=== PATIENT | male | born 1970 | race Caucasian/White ===

== ENCOUNTER 2019-08-17 21:59 | Emergency (ER) | payer OTHER ==
[~2019-08-17 21:59] MED LIST: THIAMINE 100 MG TAB PO SCH
[2019-08-17 22:06] VITALS: RESP 16
--- NOTE | 2019-08-17 22:25 | ED ---
Alcohol HPI - General Chief Complaint: Alcohol Stated Complaint: Altered Mental Status Time Seen by Provider: 08/17/19 22:09 Source: patient, EMS, RN notes reviewed, old records reviewed Mode of arrival: EMS Limitations: no limitations - History of Present Illness Initial Comments: This is a 49-year-old male presents today for evaluation. Patient has history of alcoholism hospital admissions inpatient stay with T evaluation of her cardiac disease the patient at [facility] now for alcohol withdrawal rehabilitation. Today patient was found of nausea vomiting and being severely weak and fatigued last drink was yesterday MD Complaint: alcohol intoxication, alcohol withdrawal, desires rehab, medical clearance for detox facility Last Drink: unknown (1 day ago) Previous Visits for Alcohol Intoxication?: Yes Recent Trauma: No Associated Symptoms: nausea, vomiting Treatments Prior to Arrival: none Chronic Alcohol Use: Yes - Related Data Allergies Allergy/AdvReac Type Severity Reaction Status Date / Time No Known Allergies Allergy Verified 08/17/19 22:06 Review of Systems ROS Statement: Those systems with pertinent positive or pertinent negative responses have been documented in the HPI. ROS Other: All systems not noted in ROS Statement are negative. Past Medical History Past Medical History: Hypertension History of Any Multi-Drug Resistant Organisms: None Reported Past Surgical History: Back Surgery, Coronary Bypass/CABG Past Psychological History: Bipolar, Depression Smoking Status: Never smoker Past Alcohol Use History: None Reported, Abuse, Daily Past Drug Use History: None Reported General Exam Limitations: no limitations General appearance: alert, in no apparent distress, anxious Head exam: Present: atraumatic, normocephalic, normal inspection Eye exam: Present: normal appearance, PERRL, EOMI. Absent: scleral icterus, conjunctival injection, periorbital swelling ENT exam: Present: normal exam, mucous membranes moist Neck exam: Present: normal inspection. Absent: tenderness, meningismus, lymphadenopathy Respiratory exam: Present: normal lung sounds bilaterally. Absent: respiratory distress, wheezes, rales, rhonchi, stridor Cardiovascular Exam: Present: regular rate, normal rhythm, normal heart sounds. Absent: systolic murmur, diastolic murmur, rubs, gallop, clicks GI/Abdominal exam: Present: soft, normal bowel sounds. Absent: distended, tenderness, guarding, rebound, rigid Extremities exam: Present: normal inspection, full ROM, normal capillary refill. Absent: tenderness, pedal edema, joint swelling, calf tenderness Back exam: Present: normal inspection Neurological exam: Present: alert, oriented X3, CN II-XII intact Psychiatric exam: Present: normal affect, normal mood Skin exam: Present: warm, dry, intact, normal color. Absent: rash Course Vital Signs 08/17/19 08/17/19 08/18/19 22:02 22:52 00:00 Temperature 99.1 F 98.0 F Pulse Rate 77 82 Respiratory 16 16 16 Rate Blood Pressure 161/115 161/115 139/96 O2 Sat by Pulse 100 100 Oximetry - Reevaluation(s) Reevaluation #1: 08/17/19 22:32 Medical record and recent hospitalization is reviewed Patient treated here in the emergency room feeling much improved. Given options for discharge return [facility] Medical Decision Making - Medical Decision Making 49 male DF for evaluation of alcohol abuse alcohol intoxication patient is in no current distress symptoms are relatively improving he can be discharged home - Lab Data Result diagrams: 08/17/19 22:45 08/17/19 22:45 Lab Results 08/17/19 08/17/19 08/17/19 Range/Units 22:45 22:45 22:50 WBC 2.7 L (3.8-10.6) k/uL RBC 3.42 L (4.30-5.90) m/uL Hgb 11.9 L (13.0-17.5) gm/dL Hct 37.2 L (39.0-53.0) % MCV 108.7 H (80.0-100.0) fL MCH 35.0 (25.0-35.0) pg MCHC 32.2 (31.0-37.0) g/dL RDW 17.3 H (11.5-15.5) % Plt Count 118 L (150-450) k/uL Neutrophils % (Manual) 71 % Lymphocytes % (Manual) 18 % Monocytes % (Manual) 9 % Eosinophils % (Manual) 2 % Neutrophils # (Manual) 1.92 (1.3-7.7) k/uL Lymphocytes # (Manual) 0.49 L (1.0-4.8) k/uL Monocytes # (Manual) 0.24 (0-1.0) k/uL Eosinophils # (Manual) 0.05 (0-0.7) k/uL Nucleated RBCs 0 (0-0) /100 WBC Manual Slide Review Performed Polychromasia Present Poikilocytosis Slight Anisocytosis Slight Macrocytosis Marked A Sodium 133 L (137-145) mmol/L Potassium 3.6 (3.5-5.1) mmol/L Chloride 103 (98-107) mmol/L Carbon Dioxide 22 (22-30) mmol/L Anion Gap 8 mmol/L BUN 7 L (9-20) mg/dL Creatinine 0.85 (0.66-1.25) mg/dL Est GFR (CKD-EPI)AfAm >90 (>60 ml/min/1.73 sqM) Est GFR (CKD-EPI)NonAf >90 (>60 ml/min/1.73 sqM) Glucose 116 H (74-99) mg/dL Calcium 8.5 (8.4-10.2) mg/dL Phosphorus 2.7 (2.5-4.5) mg/dL Magnesium 1.8 (1.6-2.3) mg/dL Total Bilirubin 2.4 H (0.2-1.3) mg/dL AST 142 H (17-59) U/L ALT 47 (4-49) U/L Alkaline Phosphatase 171 H (38-126) U/L Total Protein 6.2 L (6.3-8.2) g/dL Albumin 3.5 (3.5-5.0) g/dL Lipase 199 (23-300) U/L Urine Opiates Screen Not Detected (NotDetected) Ur Oxycodone Screen Not Detected (NotDetected) Urine Methadone Screen Not Detected (NotDetected) Ur Propoxyphene Screen Not Detected (NotDetected) Ur Barbiturates Screen Not Detected (NotDetected) U Tricyclic Antidepress Not Detected (NotDetected) Ur Phencyclidine Scrn Not Detected (NotDetected) Ur Amphetamines Screen Not Detected (NotDetected) U Methamphetamines Scrn Not Detected (NotDetected) U Benzodiazepines Scrn Detected H (NotDetected) Urine Cocaine Screen Not Detected (NotDetected) U Marijuana (THC) Screen Detected H (NotDetected) Serum Alcohol <10 mg/dL - EKG Data -: EKG Interpreted by Me (EKG is sinus rhythm of 69, MN 140, QRS 90, QTc 440) Disposition Clinical Impression: Alcohol withdrawal syndrome, Altered mental state Disposition: HOME SELF-CARE Condition: Fair Instructions (If sedation given, give patient instructions): Alcohol Withdrawal (ED) Is patient prescribed a controlled substance at d/c from ED?: No Referrals: Sonido Man MD [Primary Care Provider] - 1-2 days
[2019-08-17] MEDS ORDERED: THIAMINE 100 MG/ML 2 ML VIAL IVPB STA (22:29)
[2019-08-17] MEDS ORDERED: SODIUM CHLORIDE 0.9% 1,000 ML IV STA ×2 (22:29)
[2019-08-17] MEDS ORDERED: LORazepam 1 MG TAB PO STA (22:29)
[2019-08-17] MEDS ORDERED: SODIUM CHLORIDE 0.9% 500 ML 500 ML IV STA (22:29)
[2019-08-17] MEDS ORDERED: LORazepam 2 MG/ML INJ IV PRN ×3 (22:29)
[2019-08-17] MEDS ORDERED: MULTIVITAMINS, THERA 1 EACH TAB PO STA (22:29)
[2019-08-17] MEDS ORDERED: LABETALOL 5 MG/ML VIAL MDV IVP STA (22:53)
[2019-08-17 22:59] LABS: Anisocytosis Slight; HCT 37.2 % (39.0-53.0); HGB 11.9 gm/dL (13.0-17.5); MCHC 32.2 g/dL (31.0-37.0); MCV 108.7 fL (80.0-100.0); Macrocytosis Marked; Platelet Count 118 k/uL (150-450); Poikilocytosis Slight; RBC 3.42 m/uL (4.30-5.90); RDW 17.3 % (11.5-15.5); WBC 2.7 k/uL (3.8-10.6)
[2019-08-17 23:04] LABS: ALT 47 U/L (4-49); AST 142 U/L (17-59); African American GFR (CKD) >90 (>60 ml/min/1.73 sqM); Albumin 3.5 g/dL (3.5-5.0); Alcohol <10 mg/dL; Alkaline Phosphatase 171 U/L (38-126); Anion Gap 8 mmol/L; Blood Urea Nitrogen 7 mg/dL (9-20); Calcium 8.5 mg/dL (8.4-10.2); Carbon Dioxide 22 mmol/L (22-30); Chloride 103 mmol/L (98-107); Glucose 116 mg/dL (74-99); Magnesium 1.8 mg/dL (1.6-2.3); Non-African American GFR(CKD) >90 (>60 ml/min/1.73 sqM); Phosphorus 2.7 mg/dL (2.5-4.5); Potassium 3.6 mmol/L (3.5-5.1); Sodium 133 mmol/L (137-145); Total Bilirubin 2.4 mg/dL (0.2-1.3); Total Protein 6.2 g/dL (6.3-8.2)
[2019-08-17 23:27] LABS: Amphetamine Screen,Urine Not Detected (NotDetected); Barbiturate Screen,Urine Not Detected (NotDetected); Benzodiazepines Screen,Urine Detected (NotDetected); Cocaine Screen,Urine Not Detected (NotDetected); Methadone Screen, Urine Not Detected (NotDetected); Opiate Screen,Urine Not Detected (NotDetected); Oxycodone Screen, Urine Not Detected (NotDetected); Phencyclidine Screen,Urine Not Detected (NotDetected); Tricyclic Antidepressant,Urine Not Detected (NotDetected); Urn Cannabinoid Scrn Detected (NotDetected)
[2019-08-17 23:35] LABS: Eosinophils # (M) 0.05 k/uL (0-0.7); Lymphocytes # (M) 0.49 k/uL (1.0-4.8); Monocytes # (M) 0.24 k/uL (0-1.0); Neutrophils # (M) 1.92 k/uL (1.3-7.7); Neutrophils % (M) 71 %; Nucleated Red Blood Cells 0 /100 WBC (0-0); Total Cells Counted 100
[2019-08-17 23:36] LABS: Polychromasia Present
[2019-08-18 00:03] VITALS: BP 139/96; PULSE 82; TEMP 98
== END 2019-08-18 | disposition home or self-care (01) ==
LOC: EC 21:59
DX: F10.239 Alcohol dependence with withdrawal, unspecified (principal); Z95.1 Presence of aortocoronary bypass graft; Y90.0 Blood alcohol level of less than 20 mg/100 ml
CPT/HCPCS: 36415; 80053; 83690; 83735; 84100; 85025; 80306; 99285; 96374; G0480; 80320